=== PATIENT | male | born 1990 | race Caucasian/White ===

== ENCOUNTER 2021-11-11 10:25 | Outpatient (CLI) | payer BC, SELFPAY ==
[2021-11-11 16:47] LABS: Alanine Aminotransferase 153 U/L (4-50); Albumin Level 4.7 g/dL (3.5-5.1); Alkaline Phosphatase 96 U/L (38-126); Anion Gap 8 mmol/L (8-16); Aspartate Amino Transferase 126 U/L (17-59); Bilirubin,Total 0.6 mg/dL (0.2-1.3); Blood Urea Nitrogen 15 mg/dL (9-20); Calcium 9.1 mg/dL (8.4-10.2); Carbon Dioxide 24 mmol/L (22-30); Chloride 104 mmol/L (98-107); Cholesterol 230 mg/dL (0-200); Estimated Glomerular Filt Rate > 60; Glucose 119 mg/dL (65-110); HDL Direct 33 mg/dL; Potassium 4.6 mmol/L (3.4-5.0); Sodium 136 mmol/L (137-145); Triglycerides 213 mg/dL (<150)
[2021-11-11 16:59] LABS: LDL Cholesterol Direct 151 mg/dL
[2021-11-11 17:10] LABS: Free T4 Free Thyroxine 1.21 ng/mL (0.78-2.19)
[2021-11-11 17:12] LABS: Creatinine Urine 139.9 mg/dL
[2021-11-11 17:17] LABS: MALB Creatinine Ratio 15.2 mg/g (0-30); Microalbumin Urine Random 21.3 mg/L (0-16.7)
== END 2021-11-11 10:26 | disposition home or self-care (01) ==
LOC: ANHWCLAB 10:32
PROVIDERS: PCP Family Medicine; Visit Provider Internal Medicine Endocrinology, Diabetes & Metabolism
DX: E03.9 Hypothyroidism, unspecified (principal); E11.65 Type 2 diabetes mellitus with hyperglycemia; E78.2 Mixed hyperlipidemia; Z71.3 Dietary counseling and surveillance
CPT/HCPCS: 36415; 80053; 80061; 82043; 82607; 84439; 84443

== ENCOUNTER 2022-12-24 17:25 | Emergency (ER) | payer BC, SELFPAY ==
[2022-12-24 17:38] VITALS: BP 140/97; PULSE 99; RESP 16; TEMP 36.3; O2SAT 98
--- NOTE | 2022-12-24 17:52 | ED.SKABFB ---
HPI - Skin/Abscess/Foreign Bdy General Chief complaint: Extremity Problem,Nontraumatic Stated complaint: Inner LT Thigh Pain and Swelling Time Seen by Provider: 12/24/22 17:55 Source: patient Mode of arrival: ambulatory Limitations: dementia History of Present Illness MD complaint: abscess/boil Related Data Home Medications Medication Instructions Recorded Confirmed levothyroxine 150 mcg tablet 300 mcg PO DAILY 12/24/22 12/24/22 Allergies Allergy/AdvReac Type Severity Reaction Status Date / Time No Known Allergies Allergy Verified 12/24/22 17:28 Review of Systems Review of Systems: CONSTITUTIONAL: Denies malaise, chills, sweats, or fever. EYES: Denies redness, or discharge. ENT: Denies rhinorrhea, congestion, swollen lips, swollen tongue CARDIOVASCULAR: Denies chest pain, palpitations, or edema. RESPIRATORY: Denies cough or dyspnea. GASTROINTESTINAL: Denies abdominal pain, nausea, vomiting SKIN: Reports redness, swelling tenderness on left inner thigh without drainage. Denies purulent drainage, vesicles, bullae, numbness, pain beyond proportion MUSCULOSKELETAL: Denies joint pain or myalgia. NEUROLOGIC: Denies headache. All systems reviewed & are unremarkable except as noted in HPI and below PMFSH Past Medical History Medical History (Updated 12/24/22 @ 18:03 by Cat Warren NP) BMI 50.0-59.9, adult Hypothyroidism, unspecified Mixed hyperlipidemia (06/14/19) Transaminitis Type 2 diabetes mellitus with hyperglycemia, without long-term current use of insulin (~09/2016) Family History Family History Other Cancer Social History Social History (Updated 11/11/21 @ 09:42 by Carolina Cobos) Tobacco type: e-cigarettes/vaping Alcohol intake: never Comments At time of signature, agree with nursing past medical, surgical, social and family history. There is no relevant family history pertinent to the presenting complaint Exam Narrative: GENERAL: Well-appearing, well-nourished, and in no acute distress. HEAD: Normocephalic, atraumatic. EYES: PERRLA, conjunctivae clear ENT: Mucous membranes moist. NECK: Supple. No lymphadenopathy CHEST: Clear to auscultation. No respiratory distress. HEART: Regular rate and rhythm. SKIN: Warm, dry. 3.5 cm diameter area of raised erythema, induration, tenderness, warmth with another surrounding 4 cm diameter area of induration with sharp margins noted left inner thigh. No vesicles, bullae, necrosis, ecchymosis, crepitus noted. NEURO: Alert and oriented x3. PSYCH: Normal mood and affect Course Course Emergency Course: Patient is aware of diagnosis, understands and agrees to treatment plan. Anticipatory guidance given. Patient agrees to follow-up as directed and is aware of reasons to seek care at the emergency department. Portions of this record may have been created with voice recognition software Level of Care: Express Care Visit Vital Signs Vital signs: Vital Signs Temperature 97.3 F L 12/24/22 17:38 Pulse Rate 99 12/24/22 17:38 Respiratory Rate 16 12/24/22 17:38 Blood Pressure 140/97 H 12/24/22 17:38 Pulse Oximetry 98 12/24/22 17:38 Oxygen Delivery Room Air 12/24/22 17:38 Temperature 97.3 F L 12/24/22 17:38 Pulse Rate 99 12/24/22 17:38 Respiratory Rate 16 12/24/22 17:38 Blood Pressure 140/97 H 12/24/22 17:38 Pulse Oximetry 98 12/24/22 17:38 Oxygen Delivery Room Air 12/24/22 17:38 Reviewed. Procedures Abscess I/D lower extremity: Date of Incision: 12/24/22 Time of Incision: 17:59 Side (if applicable): left Local Anesthetic: lidocaine 1% Amount of anesthesia used (mL): 4 Technique: incised with #11 blade Amount of fluid expressed (mL): 10 Irrigation: Yes Packing used?: none I&D Results: Pus MDM - Skin/Abscess/Foreign Bdy MDM Narrative Medical decision making narrative: Does not appe
== END 2022-12-24 18:23 | disposition home or self-care (01) ==
PROVIDERS: Emergency Provider Nurse Practitioner; PCP Family Medicine
DX: L02.416 Cutaneous abscess of left lower limb (principal); E78.2 Mixed hyperlipidemia; E03.9 Hypothyroidism, unspecified; E11.9 Type 2 diabetes mellitus without complications; F17.290 Nicotine dependence, other tobacco product, uncomplicated
CPT/HCPCS: 10060; 87070; 87075; 87077; 87147; 87186; 87205; 99213; G0463